=== PATIENT | male | born 1980 | race Two or more races ===

== ENCOUNTER 2024-10-13 04:02 | Emergency (ER) | payer MEDICAID, OTHER ==
[~2024-10-13] VITALS: Ht 170.2 cm; Wt 92.0 kg
--- NOTE | 2024-10-13 04:30 | ED.PDOC ---
Eye-HPI HPI Comments PATIENT COMES WITH C/C OF FLU LIKE SYMPTOMS, DIZZINESS, BODY PAIN, N/V AND HEAD ACHE. PATIENT DENIES SOB OR COUGH. PATIENT STATES HIS SON IS ALSO SICK WITH THE SAME SYMPTOMS WAS SEEN YESTERDAY AT URGENT CARE HOWEVER HE DOES NOT KNOW IF HE WAS SWABBED OR WHAT HIS DIAGNOSIS WAS. DENIES CHEST PAIN, DIFFICULTY BREATHING, SHORTNESS OF BREATH, VOMITING, OR ABDOMINAL PAIN Chief Complaint: Flu like Time Seen by MD: 04:14 Primary Care Provider: BOB Reviewed Notes: Nurses Notes, Medications, Allergies Home Meds Active Scripts Ibuprofen (Ibuprofen) 800 Mg Tab, 800 MG PO Q8HP PRN for 5 Days, #15 TAB Prov:OZZY CHAVEZ EDUCATIONAL AUDIOLOGIST 10/13/24 Amoxicillin & Pot Clavulanate (AUGMENTIN TABLET) 875 Mg Tb, 875 MG PO BID for 7 Days, #14 TAB Prov:OZZY CHAVEZ EDUCATIONAL AUDIOLOGIST 10/13/24 Information Source: Patient Mode of Arrival: Ambulatory Past Medical History PAST MEDICAL HISTORY: Denies Surgical History: Denies all surgeries Family History Family History: Unknown Social History Smoker: Non-Smoker Alcohol: Denies ETOH Use Drugs: Denies Drug Use Constitutional: reports: chills, fatigue, fever, others (JOINT PAIN); denies: diaphoresis, malaise, sweats, weakness EENTM: reports: nasal discharge, throat pain; denies: blurred vision, double vision, ear bleeding, ear discharge, ear drainage, ear pain, ear ringing, eye pain, eye redness, hearing loss, mouth pain, mouth swelling, nose bleeding, nose congestion, nose pain, photophobia, tearing, throat swelling, voice changes, others Respiratory: reports: cough; denies: hemoptysis, orthopnea, SOB at rest, shortness of breath, SOB with excertion, stridor, wheezing, others Cardiovascular: denies: chest pain, dizzy spells, diaphoresis, Dyspnea on exe rtion, edema, irregular heart beat, left arm pain, lightheadedness, palpitations, PND, syncope, others Gastrointestinal: denies: abdomen distended, abdominal pain, blood streaked bowels, constipated, diarrhea, dysphagia, difficulty swallowing, hematemesis, melena, nausea, poor appetite, poor fluid intake, rectal bleeding, rectal pain, vomiting, others Genitourinary: denies: burning, dysuria, flank pain, frequency, hematuria, incontinence, penile discharge, penile sore, pain, testicle pain, testicle swelling, urgency, others Neurological: denies: dizziness, fainting, headache, left sided numbness, left sided weakness, numbness, paresthesia, pre-existing deficit, right sided numbness, right sided weakness, seizure, speech problems, tingling, tremors, weakness, others Musculoskeletal: denies: back pain, gout, joint pain, joint swelling, muscle pain, muscle stiffness, neck pain, others Integumetry: denies: bruises, change in color, change in hair/nails, dryness, laceration, lesions, lumps, rash, wounds, others Allergic/Immunocompromised: denies: Difficulty Healing, Frequent Infections, Hives, Itching, others Hematologic/Lymphatic: denies: anemia, blood clots, easy bleeding, easy bruising, swollen glands, others Endocrine: denies: excessive hunger, excessive sweating, excessive thirst, excessive urination, flushing, intolerance to cold, intolerance to heat, unexplained weight gain, unexplained weight loss, others Psychiatric: denies: anxiety, bipolar disorder, depression, hopeless, panic disorder, schizophrenia, sleepless, suicidal, others Physical Exam General Appearance: No Apparent Distress, Normal HEENT: Pharyngeal Erythema, TMs Normal Neck: Full Range of Motion, Non-Tender Respiratory: Lungs Clear, No Respiratory Distress, Normal Breath Sounds Cardiovascular: No Edema, No JVD, No Murmur, No Gallop, Normal Peripheral Pulses, Regular Rate/Rhythm Breast Exam: Deferred Gastrointestinal: No Organomegaly, Non Tender, No Pulsatile Mass, Normal Bowel Sounds, Soft Genitalia: Deferred Pelvic: Deferred Rectal: Deferred Extremities: Normal capillary refill, Normal inspection, Normal range of motion, Non-tender, No pedal edema Musculoskeletal : Apperance: Normal Neurologic: Alert, television director II-XII nml as Tested, No Motor Deficits, Normal Affect, Normal Mood, No Sensory Deficits Cerebellar Function: Normal Reflexes: Normal Skin: Dry, Normal Color, Warm Lymphatic: No Adenopathy Was a procedure done? Was a procedure done?: No EENT DIFF Eye: N/A Sore Throat: Peritonsillar Abscess, Peritonsillar Cellulitis, Pharyngitis, Viral Pharyngitis, URI X-Ray, Labs, Meds, VS Vital Signs Date Time Temp Pulse Resp B/P (MAP) Pulse Ox O2 Delivery O2 Flow Rate FiO2 10/13/24 04:14 97.8 75 18 130/98 (109) 95 97.8 Lab Test 10/13/24 04:14 Range/Units Influenza Type A Antigen Negative Negative Influenza Type B Antigen Negative Negative SARS-CoV-2 Antigen (Rapid) Negative NEGATIVE X-Ray, Labs, Meds, VS Comment Influenza and COVID swabs negative. Likely bacterial patient script Augmentin twice daily x7 days ibuprofen 800 mg p.o. t.i.d. PRN. Advised take medications as prescribed side effects discussed. Rest, increase p.o. fluids with electrolytes. Follow up with your PCP in 2 days as needed ER return precautions given patient indicates understanding agrees with discharge plan of care. Time of 1ST Reevaluation: 04:15 Reevaluation 1ST: Unchanged Patient Education/Counseling: Diagnosis, Treatment, Prognosis, Need For Follow Up Family Education/Counseling: No Family Present Departure 1 Departure Time of Disposition: 05:03 Impression: Primary Impression: URI (upper respiratory infection) Qualified Codes: J06.9 - Acute upper respiratory infection, unspecified Disposition: 01 HOME / SELF CARE / HOMELESS Condition: Stable e-Prescriptions Ibuprofen (Ibuprofen) 800 Mg Tab 800 MG PO Q8HP PRN for 5 Days, #15 TAB Prov: OZZY CHAVEZ 10/13/24 Amoxicillin & Pot Clavulanate (AUGMENTIN TABLET) 875 Mg Tb 875 MG PO BID for 7 Days, #14 TAB Prov: OZZY CHAVEZ 10/13/24 Discharged With: Self Critical Care Note Critical Care Time?: No Stability Stability form required: OZZY Rahman Oct 13, 2024 04:30
[2024-10-13 04:57] LABS: COVID19 ANTIGEN SOFIA FIA NEGATIVE (NEGATIVE); Rapid Influenza A Negative (Negative); Rapid Influenza B Negative (Negative)
[2024-10-13] MEDS ORDERED: IBUP-1456 PO (05:04)
[2024-10-13] MEDS ORDERED: AUG875T PO (05:04)
[2024-10-13] MEDS: IBUPROFEN 800 MG TAB PO ONE (05:20)
[2024-10-13 05:21] VITALS: BP 150/100; PULSE 71; RESP 19; TEMP 98.3; O2SAT 97
== END 2024-10-13 05:25 | disposition home or self-care (01) ==
LOC: ER 04:02
DX: J06.9 Acute upper respiratory infection, unspecified (principal); R51.9 Headache, unspecified; Z20.822 Contact with and (suspected) exposure to COVID-19
CPT/HCPCS: 36415; 87426; 87804